=== PATIENT | male | born 1960 | race Hispanic/Latino ===

== ENCOUNTER 2017-08-28 07:25 | Day surgery (SDC) | payer MEDICARE ==
[2017-08-28] MEDS ORDERED: NACL 0.9% 500 ML 500 ML IV SCH (08:00)
[2017-08-28] MEDS ORDERED: ZOFRAN ONE ×2 (08:14→09:30)
[2017-08-28 08:17] LABS: Basophils # (Auto) 0.1 K/mm3 (0.0-0.1); Basophils % (Auto) 0.8 % (0.0-1.8); Eosinophils # (Auto) 0.2 K/mm3 (0.0-0.4); Hematocrit 42.3 % (35.5-45.6); Hemoglobin 14.9 gm/dl (11.8-15.2); Lymphocytes # (Auto) 1.1 K/mm3 (1.2-5.4); Lymphocytes % (Auto) 17.2 % (13.4-35.0); Mean Corpuscular HGB Conc 35 % (32-34); Mean Corpuscular Hemoglobin 32 pg (28-32); Mean Corpuscular Volume 92 fl (84-94); Monocytes # (Auto) 0.8 K/mm3 (0.0-0.8); Monocytes % (Auto) 12.5 % (0.0-7.3); Platelet Count 187 K/mm3 (140-440); Red Blood Count 4.62 M/mm3 (3.65-5.03)
[2017-08-28 08:18] LABS: Red Cell Distribution Width 20.2 % (13.2-15.2)
[2017-08-28] MEDS ORDERED: ZOFRAN IV NR (08:21)
[2017-08-28 08:30] LABS: INR 0.89 (0.87-1.13)
[2017-08-28 08:32] LABS: BUN/Creatinine Ratio 13; Blood Urea Nitrogen 8 mg/dL (9-20); Calcium 9.5 mg/dL (8.4-10.2); Hemolysis Index 10
--- NOTE | 2017-08-28 08:34 | Anesthesia Consultation ---
Anesthesia Consult and Med Hx Date of service: 08/28/17 - Airway Anesthetic Teeth Evaluation: Good ROM Head & Neck: Adequate Mental/Hyoid Distance: Adequate Mallampati Class: Class III Intubation Access Assessment: Possibly Difficult - Pre-Operative Health Status ASA Pre-Surgery Classification: ASA3 Proposed Anesthetic Plan: MAC - Pulmonary Hx Smoking: Yes (1 p/day x 40 years) Hx Asthma: Yes COPD: Yes (room air SpO2 94%) Hx Sleep Apnea: Yes (snoring) - Cardiovascular System Hx Hypertension: Yes Hx Coronary Artery Disease: No (high cholesterol) - Other Systems Hx Obesity: Yes (BMI 34.9)
--- NOTE | 2017-08-28 08:34 | Anesthesia Day of Surgery ---
Anesthesia Day of Surgery - Day of Surgery Patient Examined: Yes Patient H&P Reviewed: Yes Patient is NPO: Yes
[2017-08-28] MEDS ORDERED: AMIDATE IV ONE (09:28)
[2017-08-28] MEDS ORDERED: XYLOCAINE CARDIAC IV ONE (09:29)
[2017-08-28] MEDS ORDERED: DIPRIVAN 10 MG/ML IV ONE (09:29)
[2017-08-28] MEDS ORDERED: VERSED ONE (09:29)
[2017-08-28] MEDS ORDERED: HURRICAINE ONE 20% TOPICAL SPRAY MM NR (10:00)
--- NOTE | 2017-08-28 11:09 | Short Stay Summary ---
Short Stay Documentation Date of service: 08/28/17 - History H&P: obtained from office - Allergies and Medications Current Medications: Allergies No Known Allergies Allergy (Unverified 08/28/17 07:25) Home Medications Medication Instructions Recorded Confirmed Last Taken Type ALBUTEROL Inhaler [ProAir HFA 2 puff INHALATION DAILY 08/28/17 08/28/17 History Inhaler] Bupropion HCl [Bupropion HCl ER] 400 mg PO DAILY 08/28/17 08/28/17 08/27/17 History Ferrous Sulfate [Iron] 325 mg PO DAILY 08/28/17 08/28/17 08/27/17 History Furosemide [Lasix] 20 mg PO DAILY 08/28/17 08/28/17 08/27/17 History Gabapentin [Neurontin] 300 mg PO TID 08/28/17 08/28/17 08/27/17 History HYDROcodone/APAP 10-325 [Hanna 1 each PO Q6HR PRN 08/28/17 08/28/17 08/28/17 History 10/325] Metoprolol [Lopressor TAB] 25 mg PO BID 08/28/17 08/28/17 08/28/17 History Montelukast Sodium 10 mg PO DAILY 08/28/17 08/28/17 08/27/17 History Pravastatin Sodium [Pravastatin] 10 mg PO QHS 08/28/17 08/28/17 08/27/17 History Trazodone HCl 50 mg PO DAILY 08/28/17 08/28/17 08/27/17 History Umeclidinium Brm/Vilanterol Tr 1 each IH QID 08/28/17 08/28/17 08/26/17 History [Anoro Ellipta 62.5-25 Mcg INH] Active Medications Benzocaine (Hurricaine One 20% Topical [place]) 3 spray MM PREOP NR Stop: 08/28/17 12:00 Last Admin: 08/28/17 09:47 Dose: 3 spray Sodium Chloride (Nacl 0.9% 500 Ml) 500 mls @ 50 mls/hr IV DIRECT CATHLEEN Last Admin: 08/28/17 09:18 Dose: 50 mls/hr - Physical exam General appearance: no acute distress Integumentary: no rash HEENT: Atraumatic Lungs: Clear to auscultation Breasts: deferred Heart: Regular rate Gastrointestinal: normal Male Genitourinary: deferred Female Genitourinary: deferred Rectal Exam: deferred Extremities: no ischemia Neurological: Normal gait - Brief post op/procedure progress note Date of procedure: 08/28/17 Pre-op diagnosis: Mitral stenosis Post-op diagnosis: same Procedure: ANISA Anesthesia: MAC Findings: See report Surgeon: MONSE DUKES Estimated blood loss: none Pathology: none Condition: stable - Hospital course Hospital course: Uneventful - Disposition Condition at discharge: Good Disposition: DC-01 TO HOME OR SELFCARE Short Stay Discharge Plan Activity: advance as tolerated Weight Bearing Status: Weight Bear as Tolerated Diet: low cholesterol, low salt Follow up with: PRIMARY CAREMD [Primary Care Provider] - 7 Days
[2017-08-28 12:44] VITALS: BP 138/81
== END 2017-08-28 12:20 | disposition home or self-care (01) ==
LOC: CATHLABREC 07:25 → EDSTATUS 08:30 → CATHLABREC 13:20
PROVIDERS: ATTEND Internal Medicine
DX: I08.0 Rheumatic disorders of both mitral and aortic valves (principal); J44.9 Chronic obstructive pulmonary disease, unspecified; I11.0 Hypertensive heart disease with heart failure; I50.30 Unspecified diastolic (congestive) heart failure; I27.20 Pulmonary hypertension, unspecified; E78.5 Hyperlipidemia, unspecified; E66.9 Obesity, unspecified; Z98.890 Other specified postprocedural states; Z96.649 Presence of unspecified artificial hip joint; Z82.49 Family history of ischemic heart disease and other diseases of the circulatory system; Z68.34 Body mass index [BMI] 34.0-34.9, adult
CPT/HCPCS: 36415; 80048; 85025; 85610; 85730; 93312; 93320; 93325; J2001; J2250; J2405; J2704; J7040